=== PATIENT | female | born 1965 | race Caucasian/White ===

== ENCOUNTER 2017-08-17 17:27 | Emergency (ER) | payer OTHER ==
[~2017-08-17] VITALS: Ht 157.5 cm; Wt 56.7 kg
[2017-08-17] MEDS ORDERED: ASPIR-LOW81 MG PO (17:39)
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
--- OUTSIDE RECORDS SUMMARY | 2017-08-17 17:57 | External Medical Summary Rpt ---
Author Author BARBARA Alcantara, [employer] Organization [employer] Address Unknown Phone Unavailable
--- OUTSIDE RECORDS SUMMARY | 2017-08-17 17:57 | External Medical Summary Rpt | CCD ---
Author Author JIMMY Address Unknown Phone Purpose Continuity of Care Document - through 2016
--- OUTSIDE RECORDS SUMMARY | 2017-08-17 17:57 | External Medical Summary Rpt | CCD ---
Demographics Preferred Language Greenlandic Marital Status Unknown Yazdanism Affiliation Unknown Race Unknown Ethnic Group Unknown Author Author , JIMMY JIMENEZ Address Unknown Phone Immunization No patient found.
--- OUTSIDE RECORDS SUMMARY | 2017-08-17 17:57 | External Medical Summary Rpt | CCD ---
Author Author JIMMY Address Unknown Phone [email or web address] Purpose Continuity of Care Document - through 2016
--- OUTSIDE RECORDS SUMMARY | 2017-08-17 17:57 | External Medical Summary Rpt | CCD ---
Demographics Preferred Language Lao Marital Status Unknown Anabaptism Affiliation Unknown Race Unknown Ethnic Group Unknown Author Author , JIMMY JIMENEZ Address Unknown Phone Immunization No patient found.
--- OUTSIDE RECORDS SUMMARY | 2017-08-17 17:57 | External Medical Summary Rpt | CCD ---
Author Author , JIMMY JIMENEZ Address Unknown Phone [email or web address] Purpose Continuity of Care Document - through 2016
--- OUTSIDE RECORDS SUMMARY | 2017-08-17 17:57 | External Medical Summary Rpt | CCD ---
Author Author , JIMMY JIMENEZ Address Unknown Phone [email or web address] Purpose Continuity of Care Document - through 2016
[2017-08-17 19:29] VITALS: BP 160/83
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
== END 2017-08-17 19:30 | disposition home or self-care (01) ==
LOC: ER 17:27
DX: S16.1XXA Strain of muscle, fascia and tendon at neck level, initial encounter (principal); S39.012A Strain of muscle, fascia and tendon of lower back, initial encounter; Z79.82 Long term (current) use of aspirin; F17.210 Nicotine dependence, cigarettes, uncomplicated; V43.52XA Car driver injured in collision with other type car in traffic accident, initial encounter; Y92.488 Other paved roadways as the place of occurrence of the external cause

== ENCOUNTER 2017-08-23 16:17 | Emergency (ER) | payer OTHER ==
[~2017-08-23] VITALS: Ht 157.5 cm; Wt 56.7 kg
[~2017-08-23 16:17] MED LIST: ASPIR-LOW81 MG PO
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
--- OUTSIDE RECORDS SUMMARY | 2017-08-23 16:22 | External Medical Summary Rpt | CCD ---
Author Author JIMMY Address Unknown Phone [email or web address] Purpose Continuity of Care Document - through 2016
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
--- OUTSIDE RECORDS SUMMARY | 2017-08-23 16:22 | External Medical Summary Rpt | CCD ---
Author Author JIMMY Address Unknown Phone [email or web address] Purpose Continuity of Care Document - through 2016
--- OUTSIDE RECORDS SUMMARY | 2017-08-23 16:22 | External Medical Summary Rpt | CCD ---
Demographics Preferred Language Occitan Marital Status Unknown Latter Day Affiliation Unknown Race Unknown Ethnic Group Unknown Author Author , BARBARA JIMENEZ Address Unknown Phone Immunization No patient found.
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
[2017-08-23] MEDS ORDERED: FLEXERIL10 MG PO (18:41)
[2017-08-23] MEDS ORDERED: IBUPROFEN800 MG PO (18:41)
[2017-08-23 18:51] VITALS: BP 139/75
== END 2017-08-23 18:51 | disposition home or self-care (01) ==
LOC: UTC 16:17
DX: M62.830 Muscle spasm of back (principal); V89.2XXD Person injured in unspecified motor-vehicle accident, traffic, subsequent encounter